=== PATIENT | female | born 1985 | race Caucasian/White ===

== ENCOUNTER 2016-05-22 13:48 | Emergency (ER) ==
[2016-05-22 13:56] VITALS: BP 96/66; TEMP 97.8; BMI 20.9
--- NOTE | 2016-05-22 14:34 | ED.PDOC ---
General ED Provider: Dr. YESI FONTENOT JR Chief Complaint: Rash Stated Complaint: Blotchy, itchy red rash to lefr chin/ neck. Pt noticed last noc. [ End ] Time Seen by Physician: 14:34 Mode of Arrival: Walk-In Information Source: Patient Exam Limitations: No limitations Primary Care Provider: ELINOR YARBROUGH Nursing and Triage Documentation Reviewed and Agree: Yes Review of Systems - Review Of Systems Constitutional: Reports: No symptoms Eyes: Reports: No symptoms Ears, Nose, Mouth, Throat: Reports: Mouth pain (no pain - itching red raised nodules consistent with insect bites times three left mandible times one lef tclavicle) Respiratory: Reports: No symptoms Cardiac: Reports: No symptoms GI: Reports: No symptoms : Reports: No symptoms Musculoskeletal: Reports: No symptoms Skin: Reports: Lesions, Lumps, Rash Neurological: Reports: No symptoms Endocrine: Reports: No symptoms Hematologic/Lymphatic: Reports: No symptoms All Other Systems: Other Past Medical History - Past Medical History Previously Healthy: Yes Endocrine: Reports: None Cardiovascular: Reports: None Respiratory: Reports: None Hematological: Reports: None Gastrointestinal: Reports: None Genitourinary: Reports: None Neuro/Psych: Reports: None Musculoskeletal: Reports: None Cancer: Reports: None Last Menstrual Period: unknown Other Pertinent Past Medical History: HEAD INJURY 2003 - Surgical History General Surgical History: Reports: Tubal ligation, Unknown - Family History Family History: Reports: Unknown - Social History Smoking Status: Current every day smoker, Light tobacco smoker Hx Substance Use: No Alcohol Screening: None Physical Exam - Physical Exam Appearance: Well-appearing, No pain distress, Well-nourished Eyes: CHARMAINE, EOMI, Conjunctiva clear ENT: Ears normal, Nose normal, Oropharynx normal Neck: Supple Respiratory: Airway patent, Breath sounds clear, Breath sounds equal, Respirations nonlabored Cardiovascular: RRR, Pulses normal, No rub, No murmur GI/: Soft, Nontender, No masses, Bowel sounds normal, No Organomegaly Musculoskeletal: Normal strength, ROM intact, No edema, No calf tenderness Skin: Warm, Dry (note rash) Neurological: Sensation intact, Motor intact, Reflexes intact, Cranial nerves intact, Alert, Oriented Psychiatric: Affect appropriate, Mood appropriate Critical Care Note - Critical Care Note Total Time (mins): 0 Course - Course Vital Signs: Temp Pulse Resp BP Pulse Ox 05/22/16 13:50 97.8 F 80 20 96/66 98 Departure - Departure Time of Disposition: 14:48 Disposition: HOME SELF-CARE Discharge Problem: Insect bites and stings Instructions: Insect Bite or Sting (ED) Condition: Good Pt referred to PMD for follow-up: Yes Additional Instructions: bites on face are typical of either mosquitoes or bed bugs sleeping in different place is suspicious for bedbugs antihistamine Benadryl or claritin or zyrtec(Benadryl causes drowsiness) for three days warm soaks to area two to four times a day no evidence of infection should resolve in three days- do not scratch bites Prescriptions: Cetirizine HCl [Zyrtec] 5 mg PO DAILY PRN #30 cap PRN Reason: Allergy Symptoms Allergies/Adverse Reactions: Allergies No Known Allergies Allergy (Verified 05/22/16 13:56) Home Medications: Ambulatory Orders Tramadol HCl [Ultram] 50 mg PO BID PRN 03/29/13 Cetirizine HCl [Zyrtec] 5 mg PO DAILY PRN #30 cap 05/22/16 Cholecalciferol (Vitamin D3) [Vitamin D] 50,000 unit PO WEEKLY 05/22/16
== END 2016-05-22 14:59 | disposition home or self-care (01) ==
LOC: ED 13:48
DX: S00.86XA Insect bite (nonvenomous) of other part of head, initial encounter (principal); S10.96XA Insect bite of unspecified part of neck, initial encounter; W57.XXXA Bitten or stung by nonvenomous insect and other nonvenomous arthropods, initial encounter; F17.210 Nicotine dependence, cigarettes, uncomplicated
CPT/HCPCS: 99282

== ENCOUNTER 2017-04-04 16:04 | Outpatient (CLI) ==
[2017-03-27 06:39] VITALS: BMI 22.4
== END 2017-04-04 16:05 | disposition home or self-care (01) ==
LOC: LAB 16:04
PROVIDERS: ATTEND Emergency Medicine
DX: J02.9 Acute pharyngitis, unspecified (principal)
CPT/HCPCS: 87651; 87880

== ENCOUNTER 2017-05-07 15:05 | Inpatient (IN) ==
[2017-05-07 15:26] LABS: BILIRUBIN,URINE Negative (NEGATIVE); KETONES,URINE Negative (NEGATIVE); LEUKOCYTE ESTERASE ,URINE 2+ (NEGATIVE); NITRITE,URINE Positive (NEGATIVE); PH,URINE 8.5 (5-9); PROTEIN,URINE 2+ (NEGATIVE); URINE, BLOOD 2+ (NEGATIVE)
[2017-05-07 15:29] LABS: ADD URINE MICROSCOPIC YES
[2017-05-07 15:33] LABS: BACTERIA,URINE 2+ (NOT PRESENT)
[2017-05-07] MEDS ORDERED: LIDOCAINE HCL 1% SDV SUBCUT STA (15:50)
[2017-05-07] MEDS ORDERED: ROCEPHIN IM STA (15:50)
[2017-05-07 16:09] LABS: URINE PREGNANCY INTERNAL QC INTERNAL QC VALID
[2017-05-07 16:12] LABS: BASOPHILS % (AUTO) 0.3 % (0.0-3.0); EOSINOPHILS % (AUTO) 0.2 % (0.0-7.0); HEMATOCRIT 40.6 % (37.0-47.0); HEMOGLOBIN 13.7 g/dl (12.0-16.0); IMMATURE GRANULOCYTE % (AUTO) 0.4 % (0.0-5.0); LYMPHOCYTES # (AUTO) 1.4 K/uL (0.60-3.4); LYMPHOCYTES % (AUTO) 9.6 (10.0-50.0); MEAN CORPUSCULAR HGB CONC 33.7 (31.8-35.4); MONOCYTES # (AUTO) 1.9 K/uL (0.4-2.0); MONOCYTES % (AUTO) 12.9 (0-10); NEUTROPHILS # (AUTO) 11.1 K/ul (2.0-6.9); NEUTROPHILS % (AUTO) 76.6; PLATELET COUNT 180 10^3/uL (140-440); RED BLOOD COUNT 4.56 10^6/ul (4.20-5.40); WHITE BLOOD COUNT 14.44 K/ul (4.6-10.2)
[2017-05-07 16:34] LABS: ALBUMIN 3.5 g/dL (3.4-5.0); ALBUMIN/GLOBULIN RATIO 0.8; ANION GAP 12.7; BILIRUBIN,TOTAL 0.7 mg/dL (0.00-1.20); BUN/CREATININE RATIO 5.71; CREATININE 0.7 mg/dL (0.60-1.30); POTASSIUM 3.7 mmol/L (3.5-5.10); TOTAL PROTEIN 7.9 g/dL (6.4-8.2)
--- NOTE | 2017-05-07 17:06 | CT ---
EXAM: CT of the abdomen pelvis without contrast History: Abdominal pain. Technique: Multiplanar CT images through the abdomen pelvis were obtained without the administration of IV contrast Findings: Subsegmental atelectasis seen within the lower lungs. No acute osseous abnormalities. 9 mm calcification within the lower pole of the left kidney. No right renal calculi. No hydronephro sis. No ureteral calculi. There is left perinephric stranding. No dilated loops of bowel. The jhonathan endix is not dilated or inflamed. No focal pancreatic lesions. There is a small amount of fluid jani ng the left anterior pararenal fascia. Adrenal glands are unremarkable. No free air. No bladder wal l thickening. Adnexal structures appear appropriate for patient's age. No perirectal inflammation. Small amount of nonspecific pelvic fluid could be physiologic. Moderate colonic stool. No gallston es identified by CT. No focal liver or splenic lesions. Impression: 1. Left perinephric stranding could be due to pyelonephritis or recently passed stone. 2. Fluid along the left anterior pararenal fascia could be related to pancreatitis or related to griffin lonephritis or recently passed kidney stone. Correlate with pancreatic enzymes. 3. Nonobstructing left nephrolithiasis
[2017-05-07] MEDS ORDERED: ZOFRAN 4 MG/2 ML IVP STA (17:15)
[2017-05-07] MEDS ORDERED: MORPHINE 10 MG/ML SYRINGE IVP STA ×2 (17:15→17:21)
[2017-05-07] MEDS ORDERED: MORPHINE 2 MG/ML SYRINGE IM STA (17:19)
[2017-05-07] MEDS ORDERED: MORPHINE 10 MG/ML SYRINGE IVP PRN (17:21)
[2017-05-07] MEDS ORDERED: ZOFRAN 4 MG/2 ML IVP PRN (17:22)
--- NOTE | 2017-05-07 17:25 | ED.PDOC ---
General ED Provider: Dr. GLADIS SANTOS Chief Complaint: Abdominal Pain Stated Complaint: abdominal pain Time Seen by Physician: 15:15 (left flank pain seen with nursing staff and liseth at all times ) Mode of Arrival: Walk-In Information Source: Patient Exam Limitations: No limitations Primary [facility]: [facility] Nursing and Triage Documentation Reviewed and Agree: Yes GI Complaint Exam - Abdominal Pain Complaint/Exam Onset: Gradual Duration: 3 day Symptoms Are: Still present Timing: Intermittent Initial Severity: Moderate Current Severity: Moderate Location of Pain: LLQ Radiates To: Reports: Flank (left) Character: Reports: Throbbing Aggravating: Reports: None Alleviating: Reports: Vomiting Associated Signs and Symptoms: Reports: Back pain. Denies: Diaphoresis, Fever, Cough, Chest pain, Dizziness, Constipation, Blood in stool, Dysuria, Urinary frequency, Decreased urine output, Decreased appetite, Vaginal bleeding, Vaginal discharge, Nausea, Vomiting, Diarrhea, Sore throat, Decreased activity Related History: Reports: Similar episode AAA Risk Factors: Reports: None Cardiac Risk Factors: Reports: None Ectopic Risk Factors: Reports: None Ovarian Torsion Risk Factors: Reports: None Surgical Obstruction Risk Factors: Reports: None Related Surgical History: Reports: None Patient Rh Status: Unknown Abdominal Findings: Present: None Differential Diagnoses: UTI (pylonephritis), Other Review of Systems - Review Of Systems Constitutional: Reports: No symptoms Eyes: Reports: No symptoms Ears, Nose, Mouth, Throat: Reports: No symptoms Respiratory: Reports: No symptoms Cardiac: Reports: No symptoms GI: Reports: Abdominal pain (left lower ), Vomiting : Reports: Dysuria, Flank pain (left) Musculoskeletal: Reports: No symptoms Skin: Reports: No symptoms Neurological: Reports: No symptoms Endocrine: Reports: No symptoms Hematologic/Lymphatic: Reports: No symptoms All Other Systems: Reviewed and Negative Past Medical History - Past Medical History Previously Healthy: Yes Endocrine: Reports: None Cardiovascular: Reports: None Respiratory: Reports: None Hematological: Reports: None Gastrointestinal: Reports: None Genitourinary: Reports: None Neuro/Psych: Reports: None Musculoskeletal: Reports: None Cancer: Reports: None Last Menstrual Period: end of mar Other Pertinent Past Medical History: HEAD INJURY 2003 - Surgical History General Surgical History: Reports: Tubal ligation, Unknown - Family History Family History: Reports: Unknown - Social History Smoking Status: Current every day smoker, Light tobacco smoker Hx Substance Use: No Alcohol Screening: None Physical Exam - Physical Exam Appearance: Well-appearing, No pain distress, Well-nourished Eyes: CHARMAINE, EOMI, Conjunctiva clear ENT: Ears normal, Nose normal, Oropharynx normal Respiratory: Airway patent, Breath sounds clear, Breath sounds equal, Respirations nonlabored Cardiovascular: RRR, Pulses normal, No rub, No murmur GI/: Soft, Nontender, No masses, Bowel sounds normal, No Organomegaly Musculoskeletal: Normal strength, ROM intact, No edema, No calf tenderness Skin: Warm, Dry, Normal color Neurological: Sensation intact, Motor intact, Reflexes intact, Cranial nerves intact, Alert, Oriented Psychiatric: Affect appropriate, Mood appropriate Critical Care Note - Critical Care Note Total Time (mins): 0 Course - Course Hematology/Chemistry: 05/07/17 15:50 05/07/17 15:50 Orders, Labs, Meds: Lab Review 05/07/17 05/07/17 05/07/17 15:15 15:50 15:50 WBC 14.44 H RBC 4.56 Hgb 13.7 Hct 40.6 MCV 89.0 MCH 30.0 MCHC 33.7 RDW Coeff of Tino 13.2 Plt Count 180 Immature Gran % (Auto) 0.4 Neut % (Auto) 76.6 Lymph % (Auto) 9.6 L Rusk % (Auto) 12.9 H Eos % (Auto) 0.2 Baso % (Auto) 0.3 Immature Gran # (Auto) 0.1 Neut # 11.1 H Lymph # 1.4 Rusk # 1.9 Eos # 0.0 Baso # 0.0 Sodium 132 L Potassium 3.7 Chloride 101 Carbon Dioxide 22 Anion Gap 12.7 BUN 4 L Creatinine 0.70 Estimated GFR (MDRD) 99.00 BUN/Creatinine Ratio 5.71 Glucose 97 Lactic Acid Calcium 9.0 Total Bilirubin 0.7 AST 30 ALT 36 Alkaline Phosphatase 81 Total Protein 7.9 Albumin 3.5 Globulin 4.4 Albumin/Globulin Ratio 0.80 Procalcitonin Urine Color Yellow Urine Clarity Turbid Urine pH 8.5 Ur Specific [place] 1.020 Urine Protein 2+ Urine Glucose (UA) Negative Urine Ketones Negative Urine Blood 2+ Urine Nitrite Positive Urine Bilirubin Negative Urine Urobilinogen 2.0 Ur Leukocyte Esterase 2+ Urine Microscopic RBC 5-10 Urine Microscopic WBC 30-50 Ur Squamous Epith Cells 2-5 Urine Bacteria 2+ Urine Test 05/07/17 05/07/17 05/07/17 15:53 16:00 16:00 WBC RBC Hgb Hct MCV MCH MCHC RDW Coeff of Tino Plt Count Immature Gran % (Auto) Neut % (Auto) Lymph % (Auto) R[place] % (Auto) Eos % (Auto) Baso % (Auto) Immature Gran # (Auto) Neut # Lymph # Rusk # Eos # Baso # Sodium Potassium Chloride Carbon Dioxide Anion Gap BUN Creatinine Estimated GFR (MDRD) BUN/Creatinine Ratio Glucose Lactic Acid 13.8 Calcium Total Bilirubin AST ALT Alkaline Phosphatase Total Protein Albumin Globulin Albumin/Globulin Ratio Procalcitonin 0.09 Urine Color Urine Clarity Urine pH Ur Specific [place] Urine Protein Urine Glucose (UA) Urine Ketones Urine Blood Urine Nitrite Urine Bilirubin Urine Urobilinogen Ur Leukocyte Esterase Urine Microscopic RBC Urine Microscopic WBC Ur Squamous Epith Cells Urine Bacteria Urine Test Negative Orders Category Date Time Status ADMIT PATIENT INPATIENT .TO [facility] (NON-MONITORED ADMISSION 05/07/17 17: 18 Ordered BED) ACTIVITY .BR with [facility] CARE 05/07/17 17:18 Ordered VITAL SIGNS Q8HR CARE 05/07/17 17:18 Ordered REGULAR DIET DIETARY 05/07/17 Dinner Ordered BLOOD CULTURE (ED ONLY) Stat LAB 05/07/17 16:00 Received CBC W/ AUTO DIFF Stat LAB 05/07/17 15:50 Completed COMPREHENSIVE METABOLIC PANEL Stat LAB 05/07/17 15:50 Completed LACTIC ACID Stat LAB 05/07/17 16:00 Completed PROCALCITONIN Stat LAB 05/07/17 16:00 Completed URINALYSIS C & S IF INDICATED Stat LAB 05/07/17 15:15 Completed URINE CULTURE Stat LAB 05/07/17 15:15 Received URINE Stat LAB 05/07/17 15:53 Completed Ceftriaxone Sodium [Rocephin] MEDS 05/07/17 15:50 Discontinued 1 gm IM ONCE STA Ceftriaxone Sodium [Rocephin] 1 gm MEDS 05/07/17 22:00 Ordered 0.9 % Sodium Chloride [Sodium Chloride] 50 ml IV DAILY Lidocaine HCl/Pf [Lidocaine HCl 1% Sdv] MEDS 05/07/17 15:50 Discontinued 5 ml SUBCUT ONCE STA Morphine Sulfate [Morphine 10 mg/ml Syringe] MEDS 05/07/17 17:21 Ordered 4 mg IVP Q6HR PRN Morphine Sulfate [Morphine 10 mg/ml Syringe] MEDS 05/07/17 17:21 Stat 8 mg IVP ONCE STA Morphine Sulfate [Morphine 2 mg/ml Syringe] MEDS 05/07/17 17:19 Discontinued 4 mg IM ONCE STA Ondansetron HCl/Pf [Zofran 4 mg/2 ml] MEDS 05/07/17 17:15 Stat 4 mg IVP ONCE STA Ondansetron HCl/Pf [Zofran 4 mg/2 ml] MEDS 05/07/17 17:22 Ordered 4 mg IVP Q6H PRN Sodium Chloride 0.9% [Sodium Chloride] 1,000 ml MEDS 05/07/17 17:30 Ordered IV 100 mls/hr CT ABDOMEN/PELVIS WO CONTRAST Stat RADS 05/07/17 15:50 Completed Medications Generic Name Dose Route Start Last Admin Trade Name Freq PRN Reason Stop Dose Admin Ceftriaxone Sodium 1 gm/ 50 mls @ 75 mls/hr 05/07/17 22:00 Sodium Chloride IV DAILY TREVON Sodium Chloride 1,000 mls @ 100 mls/hr 05/07/17 17:30 Sodium Chloride IV .Q10H TREVON Morphine Sulfate 4 mg 05/07/17 17:21 Morphine 10 Mg/Ml Syringe IVP Q6HR PRN Analgesia Ondansetron HCl 4 mg 05/07/17 17:22 Zofran 4 Mg/2 Ml IVP Q6H PRN Nausea / Vomiting Discontinued Medications Generic Name Dose Route Start Last Admin Trade Name Freq PRN Reason Stop Dose Admin Ceftriaxone Sodium 1 gm 05/07/17 15:50 05/07/17 16:16 Rocephin IM 05/07/17 15:51 1 gm ONCE STA Administration Lidocaine HCl 5 ml 05/07/17 15:50 05/07/17 16:16 Lidocaine Hcl 1% Sdv SUBCUT 05/07/17 15:51 5 ml ONCE STA Administration Morphine Sulfate 4 mg 05/07/17 17:19 Morphine 2 Mg/Ml Syringe IM 05/07/17 17:20 ONCE STA Morphine Sulfate 8 mg 05/07/17 17:21 Morphine 10 Mg/Ml Syringe IVP 05/07/17 17:22 ONCE STA Ondansetron HCl 4 mg 05/07/17 17:15 Zofran 4 Mg/2 Ml IVP 05/07/17 17:16 ONCE STA Vital Signs: Temp Pulse Resp BP Pulse Ox 05/07/17 16:18 100.9 F H 05/07/17 15:05 102.4 F H 127 H 16 109/79 98 Departure - Departure Time of Disposition: 17:26 Disposition: ADMITTED INPATIENT Discharge Problem: Abdominal pain, Pyelonephritis Instructions: Urinary Tract Infection in Women (ED) Condition: Good Pt referred to PMD for follow-up: Yes Additional Instructions: Please call your Family Physician as soon as possible to schedule a follow-up appointment. Allergies/Adverse Reactions: Allergies No Known Allergies Allergy (Verified 05/07/17 15:13) Home Medications: Ambulatory Orders Tramadol HCl 50 mg PO BID PRN 03/30/17 Disposition Discussed With: Patient
[2017-05-07] MEDS ORDERED: MORPHINE 2 MG/ML SYRINGE IVP STA (17:40)
[2017-05-07] MEDS ORDERED: MORPHINE 2 MG/ML SYRINGE IVP PRN (17:41)
[2017-05-07 19:03] VITALS: BMI 20.3
[2017-05-07] MEDS: SODIUM CHLORIDE 1,000 ML IV SCH (20:04)
[2017-05-07] MEDS ORDERED: TORADOL ONE (20:16)
[2017-05-07] MEDS ORDERED: TORADOL IVP STA (20:24)
[2017-05-07 20:51] LABS: AMYLASE 25 U/L (25-115); LIPASE 14 U/L (8-78)
[2017-05-07] MEDS ORDERED: ROCEPHIN 1 GM in SODIUM CHLORIDE 50 ML IV SCH (22:00)
[2017-05-07] MEDS ORDERED: ROCEPHIN ONE (22:23)
[2017-05-08] MEDS: TORADOL IVP SCH ×5 (02:49→23:54)
[2017-05-08 04:48] LABS: BASOPHILS % (AUTO) 0.3 % (0.0-3.0); EOSINOPHILS # (AUTO) 0.1 K/ul (0.0-0.7); EOSINOPHILS % (AUTO) 0.3 % (0.0-7.0); HEMATOCRIT 32.4 % (37.0-47.0); HEMOGLOBIN 10.9 g/dl (12.0-16.0); IMMATURE GRANULOCYTE % (AUTO) 0.6 % (0.0-5.0); LYMPHOCYTES # (AUTO) 1.5 K/uL (0.60-3.4); LYMPHOCYTES % (AUTO) 10.8 (10.0-50.0); MEAN CORPUSCULAR HEMOGLOBIN 30.1 pg (27.0-31.0); MEAN CORPUSCULAR HGB CONC 33.6 (31.8-35.4); MEAN CORPUSCULAR VOLUME 89.5 fl (81.0-99.0); MONOCYTES # (AUTO) 2.4 K/uL (0.4-2.0); MONOCYTES % (AUTO) 16.5 (0-10); NEUTROPHILS # (AUTO) 10.2 K/ul (2.0-6.9); NEUTROPHILS % (AUTO) 71.5; PLATELET COUNT 147 10^3/uL (140-440); RED BLOOD COUNT 3.62 10^6/ul (4.20-5.40); WHITE BLOOD COUNT 14.31 K/ul (4.6-10.2)
[2017-05-08] MEDS: SODIUM CHLORIDE 1,000 ML IV SCH ×2 (04:48→13:35)
[2017-05-08 05:07] LABS: ALBUMIN 2.4 g/dL (3.4-5.0); ALBUMIN/GLOBULIN RATIO 0.83; ANION GAP 10.6; BILIRUBIN,TOTAL 0.3 mg/dL (0.00-1.20); BUN/CREATININE RATIO 13.43; CALCIUM 6.9 mg/dL (8.2-10.2); CREATININE 0.67 mg/dL (0.60-1.30); TOTAL PROTEIN 5.3 g/dL (6.4-8.2)
[2017-05-08 05:16] LABS: POTASSIUM 2.6 mmol/L (3.5-5.10)
[2017-05-08] MEDS ORDERED: POTASSIUM CHLORIDE 10 MEQ IV STA (05:27)
[2017-05-08] MEDS ORDERED: [UNRECOGNIZED DRUG - OTHER] IV STA (05:27)
[2017-05-08] MEDS ORDERED: POTASSIUM CHLORIDE PREMIX RUN 100 ML IV ONE (06:34)
[2017-05-08] MEDS ORDERED: POTASSIUM CHLORIDE PREMIX RUN 10 MEQ in PREMIX 100 ML WATER 1 BAG IV STA (06:40)
[2017-05-08] MEDS ORDERED: MORPHINE 4 MG/ML VIAL IVP PRN (07:08)
[2017-05-08] MEDS: K-DUR PO SCH ×2 (10:05→17:45)
[2017-05-08] MEDS ORDERED: K-DUR PO STA (14:40)
[2017-05-08] MEDS: SODIUM CHLORIDE 0.9%-KCL 40MEQ 1,000 ML IV SCH (15:22)
[2017-05-08] MEDS ORDERED: MORPHINE 2 MG/ML SYRINGE IVP STA (18:41)
[2017-05-08] MEDS ORDERED: XANAX PO STA (20:34)
[2017-05-08] MEDS ORDERED: ROCEPHIN 1 GM in SODIUM CHLORIDE 50 ML IV SCH (21:00)
[2017-05-09] MEDS ORDERED: POTASSIUM CHLORIDE 20 MEQ VIAL-ADDITIVE ONLY IV ONE (04:25)
[2017-05-09] MEDS: SODIUM CHLORIDE 0.9%-KCL 40MEQ 1,000 ML IV SCH (04:32)
[2017-05-09] MEDS: TORADOL IVP SCH ×2 (05:17→13:31)
[2017-05-09 05:29] LABS: BASOPHILS % (AUTO) 0.3 % (0.0-3.0); EOSINOPHILS # (AUTO) 0.2 K/ul (0.0-0.7); EOSINOPHILS % (AUTO) 1.5 % (0.0-7.0); HEMATOCRIT 35.1 % (37.0-47.0); HEMOGLOBIN 11.3 g/dl (12.0-16.0); IMMATURE GRANULOCYTE % (AUTO) 0.5 % (0.0-5.0); LYMPHOCYTES # (AUTO) 2.5 K/uL (0.60-3.4); LYMPHOCYTES % (AUTO) 23.2 (10.0-50.0); MEAN CORPUSCULAR HEMOGLOBIN 29.6 pg (27.0-31.0); MEAN CORPUSCULAR HGB CONC 32.2 (31.8-35.4); MEAN CORPUSCULAR VOLUME 91.9 fl (81.0-99.0); MONOCYTES # (AUTO) 1.8 K/uL (0.4-2.0); MONOCYTES % (AUTO) 16.7 (0-10); NEUTROPHILS # (AUTO) 6.1 K/ul (2.0-6.9); NEUTROPHILS % (AUTO) 57.8; PLATELET COUNT 156 10^3/uL (140-440); RED BLOOD COUNT 3.82 10^6/ul (4.20-5.40); WHITE BLOOD COUNT 10.63 K/ul (4.6-10.2)
[2017-05-09 05:46] LABS: ALANINE AMINOTRANSFERASE 30 U/L (12-78); ALBUMIN 2.5 g/dL (3.4-5.0); ALBUMIN/GLOBULIN RATIO 0.71; ALKALINE PHOSPHATASE 71 U/L (42-98); ANION GAP 8.2; ASPARTATE AMINO TRANSFERASE 23 U/L (15-37); BLOOD UREA NITROGEN 6 mg/dL (7-18); BUN/CREATININE RATIO 9.67; CALCIUM 8.5 mg/dL (8.2-10.2); CARBON DIOXIDE 22 mmol/L (21-32); CHLORIDE 113 mmol/L (98-107); CREATININE 0.62 mg/dL (0.60-1.30); GLUCOSE 101 mg/dL (70-110); POTASSIUM 5.2 mmol/L (3.5-5.10); SODIUM 138 mmol/L (136-145)
[2017-05-09 05:47] LABS: BILIRUBIN,TOTAL < 0.3 mg/dL (0.00-1.20)
[2017-05-09] MEDS ORDERED: SODIUM CHLORIDE 1,000 ML IV SCH (08:30)
[2017-05-09] MEDS: K-DUR PO SCH (09:36)
--- NOTE | 2017-05-09 13:10 | HP ---
DATE OF SERVICE: 05/07/17 CHIEF COMPLAINT: Left flank pain and burning and frequency of urination. HISTORY OF PRESENT ILLNESS: This is a 31 year old female came to the emergency room with left sided abdominal pain feeling nausea started on the Sunday, thought maybe gas but kept having problem and having burning and frequency of urination. Started having fever and came to the emergency room and seen by Dr. Thomas. Temperature was 102.4, blood pressure 109/79. WBC is 14,000 with the left shift, sodium 132, urine negative and U/A was positive for nitrate, leukocyte esterase, terrible looking U/A. At that time the patient was admitted to the hospital with left sided acute pyelonephritis, dehydration and fever. REVIEW OF SYSTEMS: CONSTITUTIONAL: Fever, no chills. HEENT: Normal. ENDOCRINE: No weight gain; no weight loss. CVS: No chest pain. No PND, no orthopnea. No shortness of breath. No PND, no orthopnea. RESPIRATORY: No cough, no congestion. No hemoptysis. GI: No nausea, no vomiting. left sided abdominal pain. No melena. : No hematuria. No polyuria. Burning and frequency of urination. MUSCULOSKELETAL: No joint swelling. PSYCHIATRIC: Not anxious. No depression. No suicidal thoughts. No homicidal thoughts. SKIN: Intact, no open lesions. PAST MEDICAL HISTORY: Mild persistent asthma History of pneumonia Depression Anxiety Nicotine use DJD spine Scoliosis PAST SURGICAL HISTORY: Tubal ligation 2012 PERSONAL HISTORY: The patient smokes, no alcohol and no drugs. Family history is significant for the lung cancer. MEDICATIONS: Tramadol Ibuprofen ALLERGIES: No known allergies PHYSICAL EXAMINATION: V/S: Temperature 103.2, heart rate 118, blood pressure 109/73, respiratory rate 20, heart rate 118. HEENT: Atraumatic, normocephalic. No scleral icterus. Pallor positive. Mucosa dry. NECK: Supple. No JVD, no bruit. No lymphadenopathy. No thyromegaly. HEART: S1, S2 normal. No murmur. No cyanosis or clubbing. No ascites. LUNGS: Clear to auscultation. No rales or rhonchi. ABDOMEN: Soft, nontender. Bowel sounds are active. left sided CVA tenderness present. Left lower flank pain present. No rigidity or guarding. EXTREMITIES: No cyanosis, clubbing or pedal edema. MUSCULOSKELETAL: Normal joints, no swelling. NEUROLOGIC: The patient is SKIN: Intact; no open lesions. LYMPHATIC: No lymph nodes palpable. LABS: WBC 14.44, hgb 13.7, hct 40.6, plt count 180, sodium 132, potassium 3.7, chloride 101, bicarb 22, BUN 4. Urine is negative, Urine turbid positive, nitrate positive, leukocyte esterase positive, negative. CT scan of abdomen left sided acute pyelonephritis and questionable pancreatitis. ASSESSMENT: 1. Left sided acute pyelonephritis 2. Dehydration 3. History of DJD spine 4. Depression 5. Anxiety PLAN: 1. Admit patient to the regular floor 2. CBC and CMP today and daily 3. Cardiac enzymes and troponin 4. Rocephin 1 gram daily 5. Toradol 30mg Q 6 hours 6. Morphine 2 Q 6 hours 7. IV fluids 8. Tylenol PRN TIME SPENT: MORE THAN 75 minutes MTDD
[2017-05-09] MEDS: NORCO 5-325 PO SCH ×2 (14:01→18:02)
[2017-05-09 18:04] VITALS: BP 96/64; TEMP 97.6
--- NOTE | 2017-05-10 11:03 | AMA ---
HISTORY: The patient decided to leave AMA by evening time because she has been anxious and she doesn't want to stay in the hospital. She has to take care of the kids. Nurses and I did discuss with the patient that complications of going against medical advise and leaving the hospital in the middle of the treatment and worsening of the symptoms. The patient did verbalize understanding and signed AMA. TIME SPENT: 25 minutes now. DEJAN
--- NOTE | 2017-05-10 11:10 | PN ---
DATE OF SERVICE: 05/09/17 SUBJECTIVE: The patient was admitted with left sided pyelonephritis and UTI. The patient been getting the Morphine and Toradol for the pain. Hypokalemia being treated with potassium and this morning Potassium been 5.2. No fever since early in the morning, last temperature early in the morning was 101.7. REVIEW OF SYSTEMS: CONSTITUTIONAL: No fever, no chills. HEENT: Normal. ENDOCRINE: No weight gain, no weight loss. CVS: No angina symptoms. No CHF symptoms. No palpitations. No atypical chest pain for CAD. No shortness of breath. No PND, no orthopnea. RESPIRATORY: No cough, no hemoptysis. GI: No nausea, no vomiting. No abdominal pain. : No hematuria. No polyuria. MUSCULOSKELETAL:. No joint swelling. PSYCHIATRIC: Not anxious. No depression. No suicidal thoughts. No homicidal thoughts. SKIN: Intact. No rash. PHYSICAL EXAMINATION: HEENT: Normocephalic, atraumatic. Mucosa dry. Pallor positive. No icterus. GENERAL: Sick looking lady lying in the bed. NECK: Supple. No JVD, no carotid bruit. No lymphadenopathy. LUNGS: Clear to auscultation. No rales or rhonchi. HEART: S1, S2 normal. No S3. No murmur, gallop or regurgitation. ABDOMEN: Soft, Left sided flank pain. Bowel sounds active. No rigidity. No rebound or guarding. CVA tenderness. EXTREMITIES: No clubbing, cyanosis or pedal edema. MUSCULOSKELETAL: No joint swelling. NEUROLOGIC: Awake, alert, oriented times three. No focal deficit. LYMPHATIC: No lymph nodes palpable. SKIN: Intact. LABS: Sodium 138, potassium 5.2, chloride 113, bicarb 32, BUN 6, creatinine 0.62, WBC 10.63, hgb 11.3, hct 35.1, plt count 156. ASSESSMENT: 1. Left sided acute pyelonephritis, organism e-coli, E-coli No ESBL 2. Left sided flank pain from the pyelonephritis 3. Leukocytosis from pyelonephritis 4. Hypokalemia being treated 5. DJD spine PLAN: 1. Continue the Rocephin 1 gram daily 2. Toradol 3. Morphine PRN only as patient blood pressure is low 4. Out of bed to chair activity as tolerated TIME SPENT: More than 35 minutes MTDD
== END 2017-05-09 19:45 | disposition left against medical advice (07) | DRG 690 ==
LOC: ED 15:05 → UNDOADMIN 17:23 → MEDSURG A 17:23
PROVIDERS: ADMIT Emergency Medicine; ATTEND Emergency Medicine
DX: N10 Acute pyelonephritis (principal); N39.0 Urinary tract infection, site not specified; B96.20 Unspecified Escherichia coli [E. coli] as the cause of diseases classified elsewhere; R50.9 Fever, unspecified; E86.0 Dehydration; F41.8 Other specified anxiety disorders; D72.829 Elevated white blood cell count, unspecified; E87.6 Hypokalemia; M47.9 Spondylosis, unspecified; R10.32 Left lower quadrant pain; Z16.11 Resistance to penicillins
CPT/HCPCS: 36415; 80053; 81001; 81025; 82150; 83605; 83690; 84132; 84145; 85025; 87040; 87086; 87186; 96372; 96374; 96375; 99284

== ENCOUNTER 2018-01-09 13:28 | Outpatient (CLI) | END 2018-01-09 13:29 | disposition home or self-care (01) | LOC: LAB 13:28 | PROVIDERS: ATTEND Emergency Medicine | DX: F33.1 Major depressive disorder, recurrent, moderate (principal); M47.26 Other spondylosis with radiculopathy, lumbar region; E78.5 Hyperlipidemia, unspecified | CPT/HCPCS: 80053; 80061; 84443; 85025 ==

== ENCOUNTER 2018-01-17 10:18 | Outpatient (CLI) | END 2018-01-17 10:19 | disposition home or self-care (01) | LOC: RHC-LAB 10:18 | PROVIDERS: ATTEND Emergency Medicine | DX: R51 Headache (principal); N12 Tubulo-interstitial nephritis, not specified as acute or chronic | CPT/HCPCS: 81001; 87086 ==

== ENCOUNTER 2018-01-17 10:25 | Observation (INO) ==
[2018-01-17] MEDS ORDERED: DILAUDID 2 MG/ML SDV IVP STA (10:49)
[2018-01-17] MEDS ORDERED: ZOFRAN 4 MG/2 ML IVP STA (10:49)
[2018-01-17] MEDS ORDERED: TYLENOL PO PRN (10:53)
[2018-01-17] MEDS ORDERED: ROCEPHIN 1 GM in SODIUM CHLORIDE 50 ML IV SCH (11:00)
[2018-01-17] MEDS ORDERED: SODIUM CHLORIDE 1,000 ML IV SCH (11:00)
[2018-01-17 11:02] VITALS: BMI 21.0
[2018-01-17] MEDS ORDERED: NICODERM 21 MG TD SCH (12:00)
--- NOTE | 2018-01-17 13:49 | CT ---
EXAM: CT abdomen pelvis without contrast HISTORY: Left flank pain COMPARISON: CT abdomen pelvis 05/07/2017 that all TECHNIQUE: Serial axial images of the abdomen pelvis were performed from the lung bases through the inferior pelvis without contrast. These were viewed in multiple planes. FINDINGS: The lung bases are clear. Evaluation is limited due to lack of contrast. There is no abnormality of the liver. There is no fo alfredo hepatic lesion identified. The gallbladder is distended with no stones. The left kidney demonst rates moderate hydronephrosis and hydroureter secondary to a 0.9 x 0.6 cm stone in the proximal left ureter. The right kidney is unremarkable. The adrenal glands are unremarkable. The spleen is taisha l. The pancreas is normal. Small bowel in the abdomen pelvis is unremarkable. The appendix is normal. The colon is unremarkabl e. There is no free air, free fluid or lymphadenopathy. The uterus is unremarkable. Urinary bladde r is normal. The osseous structures are unremarkable. IMPRESSION: Moderate to large left hydronephrosis secondary to a 0.9 x 0.6 cm stone in the proximal left ureter . Urological consultation is recommended.
[2018-01-17 14:06] VITALS: BP 101/67; TEMP 97.9
[2018-01-17] MEDS ORDERED: DEMEROL 25 MG/ML VIAL IVP STA ×2 (14:41→15:23)
[2018-01-17] MEDS ORDERED: DEMEROL 50 MG/ML SYRINGE IVP STA (14:43)
--- NOTE | 2018-01-17 17:00 | PCM.HOSP ---
- OBS/IP Admit/Discharge Same Day [id number] High Severity 55 Minutes ([id number]): 01/17
[2018-01-17] MEDS ORDERED: NORCO 5-325 PO SCH (21:00)
--- NOTE | 2018-01-18 09:21 | SSS ---
DATE OF SERVICE: 01/17/18 FINAL DIAGNOSIS: 1. URINARY TRACT INFECTION, LEFT-SIDED 2. MODERATE TO SEVERE HYDRONEPHROSIS WITH 0.6 X 0.9 CM STONE IN THE PROXIMAL URETER 3. RECURRING UTI 4. SCOLIOSIS 5. DJD SPINE DISCHARGE INSTRUCTIONS: Transfer the patient to [facility] for for further treatment. MEDICATIONS AT DISCHARGE: (HOME) Hydrocodone/Acetaminophen ([place] 5-325) tablet one each p.o. b.i.d. NEW PRESCRIPTIONS: None DIET INSTRUCTIONS: NPO ACTIVITY: Bedrest SMOKING: N/A DISEASE SPECIFIC EDUCATION: Results of CT scan with stone Transfer to [facility] HOSPITAL COURSE: 32-year-old female admitted with left-sided flank pain and urinary tract infection. White count was 16,000. The patient was having severe pain ao Dilaudid was given. CT abdomen and pelvis was done which showed moderate to large left hydronephrosis secondary to 0.9 x 0.6 cm stone in the proximal left ureter. Urological consultation is needed. At that time we called [facility] and Dr. Carl jackously accepted the patient and the patient was transferred to [facility] for further evaluation and treatment. TIME SPENT: MORE THAN 65 MINUTES [facility]
== END 2018-01-17 16:15 ==
LOC: MEDSURG B 10:25
PROVIDERS: ADMIT Emergency Medicine; ATTEND Emergency Medicine
DX: M54.5 Low back pain (principal); M47.9 Spondylosis, unspecified; M41.9 Scoliosis, unspecified; N12 Tubulo-interstitial nephritis, not specified as acute or chronic; N39.0 Urinary tract infection, site not specified; N30.01 Acute cystitis with hematuria; N13.30 Unspecified hydronephrosis; R10.9 Unspecified abdominal pain; F17.210 Nicotine dependence, cigarettes, uncomplicated; R51 Headache
CPT/HCPCS: 36415; 80053; 81001; 83605; 84145; 85025; 87040; 87086

== ENCOUNTER 2018-01-17 16:10 | Outpatient (CLI) ==
[2018-01-17 11:02] VITALS: BMI 21.0
== END 2018-01-17 16:34 | disposition short-term general hospital (02) ==
LOC: AMBL 16:10
PROVIDERS: ATTEND Emergency Medicine
DX: N13.2 Hydronephrosis with renal and ureteral calculous obstruction (principal)

== ENCOUNTER 2018-03-19 10:49 | Emergency (ER) ==
[2018-03-19 10:57] VITALS: BP 103/61; TEMP 99.6; BMI 20.9
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
[2018-03-19] MEDS ORDERED: TETRACAINE 0.5% UNIT-DOSE OP STA (11:52)
== END 2018-03-19 12:11 | disposition home or self-care (01) ==
LOC: ED 10:49
DX: H16.133 Photokeratitis, bilateral (principal); W89.1XXA Exposure to tanning bed, initial encounter; F17.210 Nicotine dependence, cigarettes, uncomplicated
CPT/HCPCS: 99282

== ENCOUNTER 2018-08-29 12:36 | Emergency (ER) ==
[2018-08-29 12:39] VITALS: BP 127/59; TEMP 98.7; BMI 21.9
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
[2018-08-29] MEDS ORDERED: NORFLEX PO STA (13:17)
--- NOTE | 2018-08-29 14:20 | DI ---
EXAM: Seven views of the lumbar spine. History: Lower back pain. Comparison: Lumbar spine radiograph 01/21/2015 Findings: No acute fracture or subluxation of the lumbar spine. Disc space heights are preserved. No instability identified with flexion or extension. 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 Impression: No acute osseous abnormality of the lumbar spine and no significant arthritis. No lynn e compared to the prior study
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
== END 2018-08-29 15:15 | disposition home or self-care (01) ==
LOC: ED 12:36
DX: S39.012A Strain of muscle, fascia and tendon of lower back, initial encounter (principal); X50.9XXA Other and unspecified overexertion or strenuous movements or postures, initial encounter; F17.210 Nicotine dependence, cigarettes, uncomplicated
CPT/HCPCS: 99282